=== PATIENT | female | born 1995 | race African-American/Black ===

== ENCOUNTER 2017-06-06 19:26 | Emergency (ER) | payer OTHER ==
[~2017-06-06] VITALS: Ht 180.3 cm; Wt 70.3 kg
[2017-06-06] MEDS ORDERED: NORCO 5-325 TA1 EACH PO (19:35)
== END 2017-06-06 20:57 | disposition home or self-care (01) ==
LOC: ER 19:26
DX: S43.084A Other dislocation of right shoulder joint, initial encounter (principal); W22.03XA Walked into furniture, initial encounter; Y93.89 Activity, other specified; Y92.89 Other specified places as the place of occurrence of the external cause; Y99.8 Other external cause status